=== PATIENT | male | born 1945 | race Caucasian/White ===

== ENCOUNTER 2022-08-29 14:52 | Emergency (ER) | payer MEDICARE | END 2022-08-29 16:25 | disposition home or self-care (01) | LOC: ERS 14:52 | DX: Z76.0 Encounter for issue of repeat prescription (principal) | CPT/HCPCS: 99281 ==

== ENCOUNTER 2025-01-19 14:35 | Outpatient (CLI) | payer MEDICARE | END 2025-01-19 14:36 | disposition home or self-care (01) | LOC: BICMAMMO 14:35 | PROVIDERS: ATTEND Internal Medicine | DX: C61 Malignant neoplasm of prostate (principal); Z79.818 Long term (current) use of other agents affecting estrogen receptors and estrogen levels | CPT/HCPCS: 77080 ==

== ENCOUNTER 2025-05-24 09:01 | Outpatient (CLI) | payer MEDICARE ==
[2025-05-24 09:27] LABS: Estimated GFR - POC 52.0
[2025-05-24] MEDS ORDERED: Iopamidol 370 76% 100 ML VIAL ONE (13:10)
== END 2025-05-24 09:02 | disposition home or self-care (01) ==
LOC: CT 09:01
PROVIDERS: ATTEND Internal Medicine
DX: C61 Malignant neoplasm of prostate (principal)
CPT/HCPCS: 36415; 74177; 82565 ×2; Q9967